=== PATIENT | female | born 1985 | race Caucasian/White ===

== ENCOUNTER 2016-11-03 21:03 | Observation (INO) | payer OTHER ==
[~2016-11-03] VITALS: Ht 160 cm; Wt 87.1 kg
--- NOTE | ~2016-11-03 | DS ---
PATIENT'S NAME: SHELLI DOMINGUEZ [facility] AGE: 31 Y [address] [place] [facility] [place] [address] LOCATION: [facility] ADMIT DATE: 11/03/2016 Discharge Summary DISCHARGE DATE: 11/03/2016 FAMILY PHYSICIAN: PHYSICIAN, NO ATTENDING PHYSICIAN: Ivory Vázquez [facility] COURSE: This is a 1, para 0, at 26 weeks with left-sided cramping and spotting on a pad, now both have resolved. TOCO shows no contractions. heart tones are reassuring. Cervix is long, thick, closed, and high. TOCO is negative. heart tones are reassuring. She reports her blood type is Rh positive. Quick ultrasound revealed vertex with good fluid, moving, good heart tones, and anterior placenta. For now, we will observe. MD APRYL FRANCO/bhumika /[id number] d: 11/04/16 0302 t: 11/13/16 1647, DISCHARGE SUMMARY
[2016-11-03 22:43] LABS: BILIRUBIN URINE NEGATIVE (NEGATIVE); BLOOD URINE NEGATIVE /UL (NEGATIVE); GLUCOSE URINE NEGATIVE (NEGATIVE); KETONE URINE NEGATIVE (NEGATIVE); LEUKOCYTES URINE 500 /UL (NEGATIVE); NITRITE URINE NEGATIVE (NEGATIVE); PROTEIN URINE NEGATIVE (NEGATIVE); SPEC GRAVITY URINE 1.005 (1.003-1.035); UROBILINOGEN URINE NORMAL (NORMAL)
[2016-11-03 22:49] LABS: COLOR URINE YELLOW (YELLOW); TURBIDITY URINE CLEAR (CLEAR)
[2016-11-03] MEDS ORDERED: PRENATAL 1+1)(P1 TAB PO (22:52)
[2016-11-03 22:57] LABS: BACTERIA URINE FEW (NEGATIVE); RBC URINE NEGATIVE #/HPF (NEGATIVE)
== END 2016-11-03 23:45 | disposition disaster alternative care site (69) ==
LOC: GOBS 21:03
PROVIDERS: ADMIT Obstetrics & Gynecology
DX: O99.89 Other specified diseases and conditions complicating pregnancy, childbirth and the puerperium (principal); O26.852 Spotting complicating pregnancy, second trimester; R10.9 Unspecified abdominal pain; Z3A.26 26 weeks gestation of pregnancy
CPT/HCPCS: G0463